=== PATIENT | female | born 1935 | race Caucasian/White ===

== ENCOUNTER 2020-05-23 07:12 | Day surgery (SDC) | payer MEDICARE ==
[2020-05-23] MEDS ORDERED: Lidocaine 1% MPF 2 ML VIAL ONE (07:24)
[2020-05-23] MEDS ORDERED: Fentanyl 100 MCG/2 ML VIAL ONE (08:50)
[2020-05-23] MEDS ORDERED: Ketamine 50 MG/ML (10ML VIAL) ONE (08:50)
[2020-05-23] MEDS ORDERED: Glycopyrrolate 0.2 MG/ML 5 ML SYRINGE ONE (08:50)
[2020-05-23] MEDS ORDERED: PROPOFOL 20 ML ONE (08:51)
[2020-05-23] MEDS ORDERED: Lidocaine 1% PF 5 ML VIAL ONE (08:55)
[2020-05-23] MEDS ORDERED: PHENYLEPHRINE-NS 100 MCG/ML 10 ML SYRINGE ONE (09:22)
== END 2020-05-23 10:35 | disposition home or self-care (01) ==
LOC: CSHSDC 07:12
PROVIDERS: ATTEND Internal Medicine Gastroenterology
DX: K25.9 Gastric ulcer, unspecified as acute or chronic, without hemorrhage or perforation (principal); K44.9 Diaphragmatic hernia without obstruction or gangrene
CPT/HCPCS: 88305; 88312; J2704; J3010

== ENCOUNTER 2020-07-07 11:11 | Outpatient (CLI) | payer MEDICARE ==
[2020-07-08 02:13] LABS: SARS-CoV-2 PCR by NAA Not Detected (NotDetected)
== END 2020-07-07 11:12 | disposition home or self-care (01) ==
LOC: CSHLAB 11:11
PROVIDERS: ATTEND Internal Medicine Gastroenterology
DX: Z20.822 Contact with and (suspected) exposure to COVID-19 (principal); K25.9 Gastric ulcer, unspecified as acute or chronic, without hemorrhage or perforation
CPT/HCPCS: 87635; U0003; U0005

== ENCOUNTER 2020-07-10 05:47 | Day surgery (SDC) | payer MEDICARE ==
[2020-07-09 13:20] VITALS: BMI 23.8
[2020-07-10] MEDS ORDERED: Lidocaine 1% MPF 2 ML VIAL ONE (06:32)
[2020-07-10] MEDS ORDERED: Lidocaine 1% PF 5 ML VIAL ONE (07:16)
[2020-07-10] MEDS ORDERED: PROPOFOL 20 ML ONE (07:16)
[2020-07-10] MEDS ORDERED: Metoprolol Tartrate 5 MG/5 ML VIAL ONE (07:54)
== END 2020-07-10 08:55 | disposition home or self-care (01) ==
LOC: CSHSDC 05:47
PROVIDERS: ATTEND Internal Medicine Gastroenterology
DX: K29.30 Chronic superficial gastritis without bleeding (principal); Z87.11 Personal history of peptic ulcer disease; K44.9 Diaphragmatic hernia without obstruction or gangrene; E78.5 Hyperlipidemia, unspecified; K21.9 Gastro-esophageal reflux disease without esophagitis; I10 Essential (primary) hypertension; K58.9 Irritable bowel syndrome, unspecified; I35.0 Nonrheumatic aortic (valve) stenosis; I25.10 Atherosclerotic heart disease of native coronary artery without angina pectoris
CPT/HCPCS: 88305; J2704